=== PATIENT | male | born 1995 | race Caucasian/White ===

== ENCOUNTER 2018-12-13 09:29 | Emergency (ER) | payer BC, OTHER ==
[~2018-12-13] VITALS: Ht 188 cm; Wt 126.6 kg
--- OUTSIDE RECORDS SUMMARY | 2018-12-13 09:37 | XMS REPORT ---
Author Author YASMIN CHERRY Organization Unknown Address [address] [place] [id number] Care Team Providers Care Main Line Station Engineer Name Role Phone ESTRELLITA KAREN Unavailable YASMIN CHERRY Unavailable Problems Problem SNOMED Onset Date Resolved Date Status Mental health problem [id number] Active Allergies, Adverse Reactions NA Care Plan Goal Instructions Client will be functioning more independently with supports and have a life worth living. ADULT THERAPY SERVICE BUNDLE - Provide the following services 1-3 times each week: + [id number] Psychotherapy, 16-37 Minutes + [id number] Psychotherapy, 38-52 Minutes + 35783 Psychotherapy, 53+ Minutes + [id number] Psychotherapy for Crisis 31-74 Minutes + [id number] Each Add'l 30 Min Crisis Psychotherapy + [id number] Group Therapy + [id number] Case Conf w/Clt NN-Physician + [id number] Case Conf w/o Clt + Fam w/MD + [id number] Case Conf w/o Clt w/MD Client will be functioning more independently with supports and have a life worth living. ADULT CASE MANAGEMENT SERVICE BUNDLE - Provide the following services 1-3 times each week: + [id number] Case Conf w/Clt nn-Physician + [id number] Case Conf w/o clt + family w/MD + [id number] Case Conf no Clt, no MD, w/QMHP + [id number] CPST Adult + [id number] Strength Based Case Mgmt + [id number] TCM - Targeted Case Management Client will be functioning more independently with supports and have a life worth living. ADULT THERAPY SERVICE BUNDLE - Provide the following services 1-3 times each week: + [id number] Psychotherapy, 16-37 Minutes + 93141 Psychotherapy, 38-52 Minutes + 20344 Psychotherapy, 53+ Minutes + 38702 Psychotherapy for Crisis 31-74 Minutes + 57086 Each Add'l 30 Min Crisis Psychotherapy + 66390 Group Therapy + 68179 Case Conf w/Clt NN-Physician + [id number] Case Conf w/o Clt + Fam w/MD + [id number] Case Conf w/o Clt w/MD + [id number] Psychosocial Adult Group + [id number] TCM - Targeted Case Management Medications NA Lab Results NA Encounters Date Time Service Code Provider 11:24:00 am YASMIN CHERRY 01:00:00 pm YASMIN CHERRY Family History Functional Status NA Immunizations NA Vital Signs NA Social History NA Hospital Discharge Instructions NA Instructions * Not Applicable Procedures NA Purpose Electronic Copy
--- OUTSIDE RECORDS SUMMARY | 2018-12-13 09:38 | XMS REPORT | Continuity of Care Document ---
Author Author Erika Barrera [facility] Erika Barrera [facility] Address Unknown Phone Unavailable Support Name Relationship Address Phone TRENTON DAWSON D.O. Caregiver [employer] [address] [place] [address] Unavailable VAUGHN BLACK Next Of Kin [address] [place], [place] [id number] Insurance Providers Guarantor Isai Black Address [address] [place] [address] Payer [facility] Policy Number [id number] Subscriber's Name [place] Relationship 05 Step Father Group Number [id number] Chief Complaint and Reason for Visit Chief Complaint Headache Reason for Visit Headache Hypokalemia Problems Active Problems Medical Problem Onset Date Status Insect bite Unknown Acute Past Problems Medical Problem Onset Date Headache Unknown Hypokalemia Unknown Medications Current Home Medications Medication Dose Units Route Directions Days Qty Instructions Start Date Potassium Chloride (Potassium Chloride Er) 10 Meq Tab 10 Meq Oral Daily for Hypokalemia 7 Tablet 03/30/16 Social History Social History Problem Response Recorded Date/Time Onset Date Status Hx Alcohol Use No 12/03/2014 7:38pm Not Applicable Not Applicable Smoking Status Never smoker 03/30/2016 11:05am Not Applicable Not Applicable Query Response Start Date Stop Date Smoking Status Never smoker Hospital Discharge Instructions No hospital discharge instructions. Plan of Care Discharge Date 03/30/16 12:20pm Disposition 01 HOME, SELF-CARE Condition at Discharge Stable Instructions/Education Provided Hypokalemia (ED) Acute Headache (ED) Prescriptions See Medication Section Additional Instructions/Education Patient instructed to take Tylenol or Advil for pain. Drink lots of fluids. Take potassium as recommended. Follow up with PCP in one to 5 days. Functional Status No functional status results. Allergies, Adverse Reactions, Alerts No known allergies. Immunizations No immunization records. Vital Signs Acute Vital Signs Vital Response Date/Time Blood Pressure 137/77 mm Hg 03/30/2016 12:19pm Blood Pressure Diastolic (Adolescent 12-17yrs) 71 mm Hg (48 - 88) 12/03/2014 7:39pm Blood Pressure Mean 97 mm Hg 03/30/2016 12:19pm Blood Pressure Systolic (Adolescent 12-17yrs) 126 mm Hg (88 - 130) 12/03/2014 7:39pm Temperature (Fahrenheit) 98.3 degrees F (96.0 - 99.9) 03/30/2016 12:19pm Temperature (Calculated Celsius) 36.32997 degrees C 03/30/2016 12:19pm Temperature Source Oral 03/30/2016 12:19pm Pulse Pulse Rate (Adolescent 12-17yrs) 73 bpm (50 - 90) 12/03/2014 7:39pm Pulse Rate: ED 55 bpm 03/30/2016 12:19pm Respiratory Rate 12 breaths per minute (10 - 20) 03/30/2016 12:19pm Respiratory Rate (Adolescent 12-17yrs) 18 bpm (12 - 24) 12/03/2014 7:39pm Height (Feet) 6 ft 03/30/2016 11:02am Height (Inches) 1.0 in. 03/30/2016 11:02am Weight (Pounds) 270.0 lbs 03/30/2016 11:02am Height 6 ft 1 in 03/30/2016 11:02am Weight 270 lb 03/30/2016 11:02am Body Mass Index 35.6 kg/m^2 03/30/2016 11:02am Results Laboratory Results Test Name Result Units Flags Reference Collection Date/Time Result Date/Time Comments White Blood Count 11.5 K/uL H 5.0-10.0 03/30/2016 11:28am 03/30/2016 11:38am Red Blood Count 4.90 M/uL 4.60-5.40 03/30/2016 11:28am 03/30/2016 11:38am Hemoglobin 14.2 g/dL 14.0-18.0 03/30/2016 11:28am 03/30/2016 11:38am Hematocrit 41.5 % 40.0-54.0 03/30/2016 11:28am 03/30/2016 11:38am Mean Corpuscular Volume 84.7 fL 80.0-94.0 03/30/2016 11:28am 03/30/2016 11:38am Mean Corpuscular Hemoglobin 29.0 pg 26.0-33.0 03/30/2016 11:28am 03/30/2016 11:38am Mean Corpuscular Hemoglobin Concent 34.2 g/dL 31.0-36.0 03/30/2016 11:28am 03/30/2016 11:38am Red Cell Distribution Width 12.9 % 11.5-14.5 03/30/2016 11:28am 03/30/2016 11:38am RDW Standard Deviation 39.9 fL 35.1-43.9 03/30/2016 11:28am 03/30/2016 11:38am Platelet Count 179 K/uL 130-400 03/30/2016 11:28am 03/30/2016 11:38am Mean Platelet Volume 9.9 fL 7.0-11.0 03/30/2016 11:28am 03/30/2016 11:38am Neutrophils 33.0 % L 42.0-75.0 03/30/2016 11:28am 03/30/2016 12:10pm Band Neutrophils 3.0 % 0-7 03/30/2016 11:28am 03/30/2016 12:10pm Lymphocytes (Manual) 39.0 % 21.0-51.0 03/30/2016 11:28am 03/30/2016 12:10pm Monocytes (Manual) 6.0 % 2.0-9.0 03/30/2016 11:28am 03/30/2016 12:10pm Eosinophils (Manual) 2.0 % 0-7.0 03/30/2016 11:28am 03/30/2016 12:10pm Basophils (Manual) 0.0 % 0-1 03/30/2016 11:28am 03/30/2016 12:10pm Atypical Lymphocytes 17.0 % H 0-2 03/30/2016 11:28am 03/30/2016 12:10pm Platelet Estimate NORMAL NORMAL 03/30/2016 11:28am 03/30/2016 12:10pm Random Glucose 106 mg/dL 65-115 03/30/2016 11:28am 03/30/2016 11:52am Blood Urea Nitrogen 16 mg/dL 8-25 03/30/2016 11:28am 03/30/2016 11:52am Creatinine 0.90 mg/dL 0.9-1.6 03/30/2016 11:28am 03/30/2016 11:52am BUN/Creatinine Ratio 17.8 03/30/2016 11:28am 03/30/2016 11:52am Sodium Level 137 mEq/L 133-145 03/30/2016 11:28am 03/30/2016 11:52am Potassium Level 3.3 mEq/L L 3.5-5.1 03/30/2016 11:28am 03/30/2016 11:52am Chloride Level 104 mEq/L 98-116 03/30/2016 11:28am 03/30/2016 11:52am Carbon Dioxide Level 23 mEq/L 22-34 03/30/2016 11:28am 03/30/2016 11:52am Anion Gap 13.3 H 6-13 03/30/2016 11:28am 03/30/2016 11:52am Calcium Level 9.2 mg/dL 8.2-10.6 03/30/2016 11:28am 03/30/2016 11:52am Procedures No known history of procedures. Encounters Encounter Location Arrival/Admit Date Discharge/Depart Date Attending Provider Departed Emergency Room Erika Barrera [facility] 03/30/16 11:01am 03/30/16 12:20pm TRENTON DAWSON D.O. Departed Clinic Erika B. [facility] 12/03/14 7:17pm 12/03/14 8:52pm SATINDER EID APRN Recent Diagnosis
--- OUTSIDE RECORDS SUMMARY | 2018-12-13 09:38 | XMS REPORT | Continuity of Care Document ---
Author Author [facility] Organization [facility] Address [facility] [address] [place] [address] Phone Unavailable Support Name Relationship Address Phone ROBERTA MUHAMMAD D.O. Caregiver [address] [place], [place] [address] BRINA BLACK Next Of Kin [address] [place] [address] Insurance Providers Payer Name Policy Number Subscriber Name Relationship [facility] [id number] Murray Black W 19 Child Advance Directives Directive Response Recorded Date/Time Do you have an Advanced Directive? No 06/09/09 10:10am Advance Directives No 09/26/14 7:55pm Living Will No 09/26/14 7:55pm Health Care Proxy No 09/26/14 8:57pm Power of Profiling Machine Set Up Operator Tool for Health Care No 09/26/14 7:55pm Organ, Tissue, or Eye Donor No 09/26/14 7:54pm Do you have a signed organ donor card? No 06/09/09 10:10am Problems Medical Problems Problem Onset Date Status Migraine Unknown Active Ilio-inguinal strain Unknown Active Ilio-inguinal strain Unknown Active Medications Medication Dose Route Sig Days/Qty Instructions Order Date Discontinued Date Status [no current meds] 06/09/09 Active Amoxicillin/Clavulanate Potassium 1 Tab PO TWICE A DAY 20 Qty 06/09/09 Active Acetaminophen/Hydrocodone Bitart 1 Tab PO EVERY 4-6 HOURS 15 Qty 06/09/09 Active Social History No social history. Hospital Discharge Instructions No hospital discharge instructions. Plan of Care No plan of care. Functional Status Query Response Date Recorded Berny Coma Scale Total 15 September 26, 2014 8:45pm Patient Behavior Appropriate September 26, 2014 8:45pm Allergies, Adverse Reactions, Alerts Allergen Type Severity Reaction Status Last Updated NO KNOWN ALLERGIES Active 06/09/09 Immunizations Name Given Type Hx Diphtheria, Pertussis, Tetanus Vaccination Up To Date Historical Hx Influenza Vaccination No Historical Hx Pneumococcal Vaccination No Historical Vital Signs Acute Vital Signs Vital Response Date/Time Temperature (Fahrenheit) 97.8 degrees F (97.6 - 99.5) Temperature Source Temporal Artery Pulse Rate (adult) 53 bpm (60 - 90) Respiratory Rate 19 bpm (12 - 24) Blood Pressure 118/58 mm Hg O2 Sat by Pulse Oximetry 99 % (90 - 100) Oxygen Delivery Method Pain Intensity 7 Pain Location Body Site Modifier Pain Description Pain Duration 1-3 Hours Height 6 ft 2 in Weight 275 lb Body Mass Index 35.0 kg/m^2 Results No known relevant diagnostic tests, laboratory data and/or discharge summary. Procedures Procedure Status Date Provider(s) X-ray of pelvis, one or two views including anteroposterior view completed 09/26/14 ROBERTA MUHAMMAD D.O. X-ray of left hip, AP and lateral views completed 09/26/14 ROBERTA MUHAMMAD D.O. Encounters Encounter Location Date/Time Departed Emergency Room [facility] 09/26/14 7:51pm Recent Diagnosis
[2018-12-13] MEDS ORDERED: fentaNYL INJECTION 100 MCG/2 ML AMP IVP STA (09:58)
[2018-12-13] MEDS ORDERED: KETOROLAC 30 MG/ML VIAL IVP STA (09:58)
[2018-12-13] MEDS ORDERED: NS IV 1000 ML 1,000 ML IV ONE (09:58)
[2018-12-13 10:15] LABS: BASOPHILS # (AUTO) 0.1 10^3/uL (0.0-0.1); BASOPHILS % (AUTO) 1 % (0-10); EOSINOPHILS % (AUTO) 1 % (0-10); HEMATOCRIT 44 % (40-54); HEMOGLOBIN 14.6 G/DL (13.3-17.7); LYMPHOCYTES # (AUTO) 2.4 X 10^3 (1.0-4.0); LYMPHOCYTES % (AUTO) 29 % (12-44); MEAN CORPUSCULAR HEMOGLOBIN 28 PG (25-34); MEAN CORPUSCULAR HGB CONC 33 G/DL (32-36); MEAN CORPUSCULAR VOLUME 86 FL (80-99); MEAN PLATELET VOLUME 9.8 FL (7.4-10.4); MONOCYTES # (AUTO) 1.2 X 10^3 (0.0-1.0); MONOCYTES % (AUTO) 14 % (0-12); NEUTROPHILS # (AUTO) 4.6 X 10^3 (1.8-7.8); NEUTROPHILS % (AUTO) 55 % (42-75); PLATELET COUNT 238 10^3/uL (130-400); RED CELL DISTRIBUTION WIDTH 12.9 % (10.0-14.5); WHITE BLOOD COUNT 8.3 10^3/uL (4.3-11.0)
[2018-12-13 10:30] LABS: ALANINE AMINOTRANSFERASE 65 U/L (0-55); ALBUMIN 4.5 GM/DL (3.2-4.5); ALKALINE PHOSPHATASE 52 U/L (40-136); BILIRUBIN,TOTAL 0.5 MG/DL (0.1-1.0); BUN/CREATININE RATIO 11; CALCIUM 9.7 MG/DL (8.5-10.1); CARBON DIOXIDE 23 MMOL/L (21-32); CHLORIDE 103 MMOL/L (98-107); GFR ESTIMATED > 60; GLUCOSE 88 MG/DL (70-105); POTASSIUM 3.5 MMOL/L (3.6-5.0); SODIUM 139 MMOL/L (135-145); TOTAL PROTEIN 7.8 GM/DL (6.4-8.2)
--- NOTE | 2018-12-13 10:34 | ED General ---
General Chief Complaint: Abdominal/GI Problems Stated Complaint: SOA/FACIAL NUMBNESS ABD PAIN Nursing Triage Note: PT WENT TO DOCTOR ON WEDNESDAY FOR SORE THROAT. PT PRESCRIBED STEROIDS AND A Z MICKEY. PT QUIT TAKING THE STEROID AFTER GETTING ABD PAIN. PT CO SOA TODAY WHILE AT WORK AND GOT DIZZY AND LIGHTHEADED. CO NUMBNESS IN HANDS WITH TINGLING. Nursing Sepsis Screen: No Definite Risk Source of Information: Patient Exam Limitations: No Limitations History of Present Illness Date Seen by Provider: Dec 13, 2018 Time Seen by Provider: 09:58 Initial Comments Here with report of sore throat, upper abdominal pain especially on the left side, shortness of air and overall feeling weak. Feels like his mouth and hands are tingling. Patient is breathing rapidly. States the rapid breathing is because of the pain in the low chest upper abdomen. Timing/Duration: 1 Week, Getting Worse Severity: Moderate Associated Systoms: No Chest Pain; Fever/Chills; No Nausea/Vomiting Allergies and Home Medications Allergies Coded Allergies: No Known Drug Allergies (Unverified , 01/23/11) Patient Home Medication List Home Medication List Reviewed: Yes Review of Systems Review of Systems Constitutional: see HPI; No chills; fever EENTM: throat pain; No nose congestion Respiratory: cough (mild occasional), short of breath Cardiovascular: no symptoms reported Gastrointestinal: abdominal pain (LUQ), nausea; No vomiting Genitourinary: no symptoms reported Musculoskeletal: no symptoms reported Skin: no symptoms reported Psychiatric/Neurological: Anxiety, Tingling Hematologic/Lymphatic: No Symptoms Reported All Other Systems Reviewed Negative Unless Noted: Yes Past Rdsicit-Vfpgju-Vlvgaw Hx Past Med/Social Hx: Reviewed Nursing Past Med/Soc Hx Patient Social History Alcohol Use: Occasionally Uses Recreational Drug Use: No Smoking Status: Never a Smoker 2nd Hand Smoke Exposure: No Recent Foreign Travel: No Contact w/Someone Who Travel: No Recent Infectious Disease Expo: No Recent Hopitalizations: No Seasonal Allergies Seasonal Allergies: No Past Medical History Surgeries: Yes Tonsillectomy Respiratory: No Cardiac: No Neurological: Yes (FEBRILE SEIZURE A CHILD) Sexually Transmitted Disease: No Genitourinary: No Gastrointestinal: No Endocrine: No HEENT: No Loss of Vision: Denies Hearing Impairment: Denies Cancer: No Psychosocial: No Integumentary: No Blood Disorders: No Adverse Reaction/Blood Tranf: No Family Medical History Reviewed Nursing Family Hx Physical Exam-Suspected Sepsis Physical Exam Vital Signs Vital Signs - First Documented 12/13/18 09:35 Temp 100.2 Pulse 64 Resp 15 B/P (MAP) 133/76 (95) Pulse Ox 100 O2 Delivery Room Air Capillary Refill : Less Than 3 Seconds Blood Pressure Mean: 95 Height, Weight, BMI Height: 6'2.00" Weight: 279lbs. oz. 126.533317tb; BMI Method:Stated General Appearance: No Apparent Distress, WD/WN HEENT: PERRL/EOMI, Pharyngeal Erythema Neck: Non Tender, Supple Respiratory: Lungs Clear, Normal Breath Sounds Cardiovascular: Regular Rate, Rhythm, Normal Peripheral Pulses Gastrointestinal: Non Tender, Soft Extremity: Normal Range of Motion, Non Tender Neurologic/Psychiatric: Alert, Oriented x3 Skin: normal color, warm/dry Focused Exam Lactate Level 12/13/18 09:57: Lactic Acid Level 1.29 Lactic Acid Level Laboratory Tests Test 12/13/18 09:57 Lactic Acid Level 1.29 MMOL/L (0.50-2.00) Progress/Results/Core Measures Suspected Sepsis Recent Fever Within 48 Hours: Yes Infection Criteria Present: Suspected New Infection New/Unexplained Altered Menta: No Sepsis Screen: No Definite Risk SIRS Temperature:100.2 Pulse: 64 Respiratory Rate: 15 Laboratory Tests 12/13/18 09:57: White Blood Count 8.3 Blood Pressure 133 /76 Mean: 95 12/13/18 09:57: Lactic Acid Level 1.29 Laboratory Tests 12/13/18 09:57: Creatinine 1.10, Platelet Count 238, Total Bilirubin 0.5 Results/Orders Lab Results Laboratory Tests Test 12/13/18 09:57 12/13/18 11:04 Range/Units White Blood Count 8.3 4.3-11.0 10^3/uL Red Blood Count 5.18 4.35-5.85 10^6/uL Hemoglobin 14.6 13.3-17.7 G/DL Hematocrit 44 40-54 % Mean Corpuscular Volume 86 80-99 FL Mean Corpuscular Hemoglobin 28 25-34 PG Mean Corpuscular Hemoglobin Concent 33 32-36 G/DL Red Cell Distribution Width 12.9 10.0-14.5 % Platelet Count 238 130-400 10^3/uL Mean Platelet Volume 9.8 7.4-10.4 FL Neutrophils (%) (Auto) 55 42-75 % Lymphocytes (%) (Auto) 29 12-44 % Monocytes (%) (Auto) 14 H 0-12 % Eosinophils (%) (Auto) 1 0-10 % Basophils (%) (Auto) 1 0-10 % Neutrophils # (Auto) 4.6 1.8-7.8 X 10^3 Lymphocytes # (Auto) 2.4 1.0-4.0 X 10^3 Monocytes # (Auto) 1.2 H 0.0-1.0 X 10^3 Eosinophils # (Auto) 0.0 0.0-0.3 10^3/uL Basophils # (Auto) 0.1 0.0-0.1 10^3/uL Neutrophils % (Manual) 57 % Lymphocytes % (Manual) 24 % Monocytes % (Manual) 9 % Reactive Lymphocytes 10 % Blood Morphology Comment NORMAL Sodium Level 139 135-145 MMOL/L Potassium Level 3.5 L 3.6-5.0 MMOL/L Chloride Level 103 98-107 MMOL/L Carbon Dioxide Level 23 21-32 MMOL/L Anion Gap 13 5-14 MMOL/L Blood Urea Nitrogen 12 7-18 MG/DL Creatinine 1.10 0.60-1.30 MG/DL Estimat Glomerular Filtration Rate > 60 BUN/Creatinine Ratio 11 Glucose Level 88 70-105 MG/DL Lactic Acid Level 1.29 0.50-2.00 MMOL/L Calcium Level 9.7 8.5-10.1 MG/DL Corrected Calcium 9.3 8.5-10.1 MG/DL Total Bilirubin 0.5 0.1-1.0 MG/DL Aspartate Amino Transf (AST/SGOT) 31 5-34 U/L Alanine Aminotransferase (ALT/SGPT) 65 H 0-55 U/L Alkaline Phosphatase 52 40-136 U/L Total Protein 7.8 6.4-8.2 GM/DL Albumin 4.5 3.2-4.5 GM/DL Lipase 43 8-78 U/L Monoscreen NEGATIVE NEGATIVE Group A Streptococcus Screen NEGATIVE NEGATIVE My Orders Orders - YRIS ARTEAGA MD Cbc With Automated Diff (12/13/18 09:58) Comprehensive Metabolic Panel (12/13/18 09:58) Lactic Acid Analyzer (12/13/18 09:58) Monotest (12/13/18 09:58) Rapid Strep A Screen (12/13/18 09:58) Chest Pa/Lat (2 View) (12/13/18 09:58) Ed Iv/Invasive Line Start (12/13/18 09:58) Ns Iv 1000 Ml (Sodium Chloride 0.9%) (12/13/18 09:58) Fentanyl Injection (Sublimaze Injection (12/13/18 09:58) Ketorolac Injection (Toradol Injection) (12/13/18 09:58) Lipase (12/13/18 10:44) Manual Differential (12/13/18 09:57) Famotidine Injection (Pepcid Injection) (12/13/18 11:21) Sucralfate Tablet (Carafate Tablet) (12/13/18 11:30) Medications Given in ED Current Medications Medications Dose Ordered Sig/[place] Route Start Time Stop Time Status Last Admin Dose Admin Sodium Chloride 1,000 ml @ 0 mls/hr Q0M ONCE IV 12/13/18 09:58 12/13/18 10:10 DC 12/13/18 10:25 1,000 MLS/HR Sucralfate 1 gm ONCE ONCE PO 12/13/18 11:30 12/13/18 11:31 DC 12/13/18 11:33 1 GM Vital Signs/I&O 12/13/18 12/13/18 09:35 11:06 Temp 100.2 98.9 Pulse 64 63 Resp 15 15 B/P (MAP) 133/76 (95) 123/68 Pulse Ox 100 98 O2 Delivery Room Air Room Air Capillary Refill : Less Than 3 Seconds Blood Pressure Mean: 95 Progress Note : Progress Note Seen and evaluated. IV, labs, chest x-ray, normal saline 1 L bolus and fentanyl 50 g IV ordered. Monitor patient. Pepcid 20 mg IV and Carafate 1 g by mouth given. Overall patient is improved to resolved. Feels much better. We will give him information outpatient follow-up for surgery clinic and patient will call for appointment. Instructed to follow-up for further evaluation including upper endoscopy if indicated. We will initiate outpatient Carafate for 2 weeks. Discharged home with return precautions. Patient verbalize understanding instructions and agreement with plan. Diagnostic Imaging Diagonstic Imaging: Xray Plain Films/CT/US/NM/MRI: chest Comments [facility] [place], [place] NAME: NADIA DE [facility] REC#: [id number] PT STATUS: REG ER : 1995 PHYSICIAN: YRIS ARTEAGA MD ADMIT DATE: 12/13/18/ER Draft Date of Exam:12/13/18 CHEST PA/LAT (2 VIEW) CLINICAL INDICATION: Patient has shortness of breath today and dizziness and lightheadedness. EXAM: Chest x-ray PA and lateral views. COMPARISONS: None. FINDINGS: Lungs/pleura: Lungs are clear. There is no pneumothorax. There is no pleural effusion. Mediastinum: Unremarkable. Pulmonary vasculature: Unremarkable. Heart: Unremarkable. Bones/extrathoracic soft tissue: Unremarkable. IMPRESSION: There is no radiographic evidence of acute cardiopulmonary process. Dictated on workstation # [id number] Dict: 12/13/18 1052 Trans: 12/13/18 1054 [id number] Interpreted by: WHITNEY MONROY MD Electronically signed by: Departure Impression Primary Impression: Epigastric abdominal pain Disposition: HOME, SELF-CARE Condition: Improved Departure-Patient Inst. Decision time for Depature: 12:00 Referrals: JAIME CARDONA,LOCAL PHYSICIAN (PCP) Primary Care Physician Patient Instructions: Acute Abdomen (Belly Pain), Adult (DC), Gastritis (DC) Add. Discharge Instructions: All discharge instructions reviewed with patient and/or family. Voiced understanding. You may take [id number] omeprazole 20 mg daily for the next 2 weeks and may extend that up to 6 weeks as needed. Call and make appointment with surgeon listed for recheck and further evaluation within one week. Take other medications as directed. Stop the prednisone. Return for worsening, fever, vomiting, weakness, breathing problems or other concerns as needed. Clear liquid to light diet initially today and then advance as tolerated. Avoid spicy or heavy foods. Scripts Sucralfate (Sucralfate) 1 Gm Tablet 1 GM PO ACHS, #56 TAB 1 Refill Chew tablet to a slurry and then swallow Prov: YRIS ARTEAGA MD 12/13/18 Copy Copies To 1: JAIME CARDONA TIMOTHY D MD Dec 13, 2018 10:33
[2018-12-13 10:47] LABS: LYMPHOCYTES % (MANUAL) 24 %; MONOCYTES % (MANUAL) 9 %; NEUTROPHILS % (MANUAL) 57 %; RBC MORPH NORMAL; REACTIVE LYMPHOCYTES 10 %
--- NOTE | 2018-12-13 10:55 | Diagnostic Imaging Report ---
CLINICAL INDICATION: Patient has shortness of breath today and dizziness and lightheadedness. EXAM: Chest x-ray PA and lateral views. COMPARISONS: None. FINDINGS: Lungs/pleura: Lungs are clear. There is no pneumothorax. There is no pleural effusion. Mediastinum: Unremarkable. Pulmonary vasculature: Unremarkable. Heart: Unremarkable. Bones/extrathoracic soft tissue: Unremarkable. IMPRESSION: There is no radiographic evidence of acute cardiopulmonary process. Dictated by: Dictated on workstation # [id number]
[2018-12-13] MEDS ORDERED: FAMOTIDINE 20MG/2ML IV (PEPCID) IV STA (11:21)
[2018-12-13] MEDS ORDERED: SUCRALFATE 1 GM (CARAFATE) TAB PO ONE (11:30)
[2018-12-13] MEDS ORDERED: SUCR1TAB PO (12:03)
[2018-12-13 12:30] VITALS: BP 185/87
== END 2018-12-13 12:40 | disposition home or self-care (01) ==
LOC: EDUNIT# 09:29 → ER 09:33
DX: R10.13 Epigastric pain (principal); F41.9 Anxiety disorder, unspecified; Z90.89 Acquired absence of other organs
CPT/HCPCS: 36415; 71046; 80053; 83605; 83690; 85007; 85025; 85027; 86308; 87430; 96361; 96374; 96375